=== PATIENT | female | born 2000 | race African-American/Black ===

== ENCOUNTER 2023-05-26 20:27 | Emergency (ER) | payer OTHER ==
[~2023-05-26] VITALS: Ht 160 cm; Wt 53.7 kg
[2023-05-26 22:06] LABS: COVID19 ANTIGEN SOFIA FIA NEGATIVE (NEGATIVE)
[2023-05-26 22:07] LABS: Rapid Influenza A Negative (Negative); Rapid Influenza B Negative (Negative)
[2023-05-26 22:11] VITALS: BP 116/55; PULSE 87; RESP 16; TEMP 99.2; O2SAT 100
[2023-05-26 22:18] LABS: Rapid Strep A Screen-Throat Positive
[2023-05-26] MEDS ORDERED: PENI500T2 PO (22:29)
== END 2023-05-26 22:45 | disposition home or self-care (01) ==
LOC: ER 20:27
DX: J02.0 Streptococcal pharyngitis (principal); Z20.822 Contact with and (suspected) exposure to COVID-19
CPT/HCPCS: 36415; 87426; 87804; 87880